=== PATIENT | female | born 1995 | race Caucasian/White ===

== ENCOUNTER 2021-11-01 08:05 | Inpatient (IN) | payer OTHER ==
[~2021-11-01 08:05] MED LIST: Bupivacaine 0.25% HCL 30 ML VIAL ONE
[2021-11-01] MEDS ORDERED: HYDROcodone/Acetaminophen 5/325 mg Tablet PO PRN (09:12)
[2021-11-01] MEDS ORDERED: Promethazine HCl 25 MG/ML VIAL IM PRN ×2 (09:12→11:31)
[2021-11-01] MEDS ORDERED: Ondansetron PF 4 MG/2 ML Vial IVP PRN ×2 (09:12→11:31)
[2021-11-01] MEDS ORDERED: Carboprost 250 MCG/ML AMP IM PRN (09:12)
[2021-11-01] MEDS ORDERED: Lidocaine 1% (PF) 30 ML VIAL SC PRN (09:12)
[2021-11-01] MEDS ORDERED: Butorphanol Tartrate 1 MG/ML VIAL SLOW IVP PRN (09:12)
[2021-11-01] MEDS ORDERED: Misoprostol 200 MCG TAB PR PRN (09:12)
[2021-11-01] MEDS ORDERED: Ibuprofen 800 MG TAB PO PRN (09:12)
[2021-11-01] MEDS ORDERED: Methylergonovine 0.2 MG/ML VIAL IM PRN (09:12)
[2021-11-01] MEDS ORDERED: hydrALAZINE 20 MG/ML VIAL SLOW IVP PRN (09:12)
[2021-11-01] MEDS ORDERED: NS w/ Oxytocin 30 units 500 ML IV SCH ×2 (09:15)
[2021-11-01] MEDS: Lactated Ringer's 1,000 ML IV SCH ×2 (09:20→13:39)
[2021-11-01 09:22] LABS: Fetal Membranes Rupture RUPTURE DETECTED (No Rupture)
[2021-11-01 11:00] LABS: Hemoglobin 13.3 g/dL (12.0-15.5); Mean Corpuscular HGB CONC 34.8 g/dL (32.0-36.0); Mean Corpuscular Hemoglobin 30.7 pg (27.0-33.0); Mean Corpuscular Volume 88.2 fl (81.6-98.3); Mean Platelet Volume 11.4 fl (7.4-10.4); Platelet Count 126 10x3/uL (150-450); RBC Distribution Width 13.3 % (11.5-14.5); Red Blood Cell (RBC) Count 4.33 10x6/uL (3.90-5.03); White Blood Cell (WBC) Count 13.1 10x3/uL (3.5-10.5)
[2021-11-01] MEDS ORDERED: Fentanyl 2 mcg/Bup 0.1% Cadd 100 ML ONE (11:31)
[2021-11-01] MEDS ORDERED: ePHEDrine Sulfate 50 MG/10 ML VIAL SLOW IVP PRN (11:31)
[2021-11-01] MEDS ORDERED: Acetaminophen 325 MG TAB PO PRN (11:31)
[2021-11-01] MEDS ORDERED: Lactated Ringer's 500 ML IV PRN (11:31)
[2021-11-01] MEDS ORDERED: Naloxone HCl 0.4 mg/ml Vial IVP PRN ×2 (11:31)
[2021-11-01] MEDS ORDERED: diphenhydrAMINE 50 MG/ML VIAL IVP PRN (11:31)
[2021-11-01] MEDS ORDERED: Moisturizing Cream (Eucerin) 113 GM JAR TOP PRN (11:31)
[2021-11-01 11:32] LABS: Hep B Surf Ag Non-Reactive S/CO (NonReactive); Syphilis Antibody Nonreactive (Nonreactive); Syphilis Antibody Index 0.04 S/CO (<1.00 Non-Reactive)
[2021-11-01 11:36] LABS: HBSAg Index 0.14 S/CO (0-0.99)
[2021-11-01] MEDS ORDERED: Communication Order-Pharmacy FS SCH (11:45)
[2021-11-01] MEDS ORDERED: Fentanyl 2 mcg/Bupivacaine 0.1% Cassette 100 ML EPIDURAL SCH (11:45)
[2021-11-01 13:27] LABS: SARS-CoV-2 NAA Rapid Test Not Detected (NotDetected)
[2021-11-02] MEDS ORDERED: hydrALAZINE 20 MG/ML VIAL SLOW IVP PRN (02:04)
[2021-11-02] MEDS ORDERED: Bisacodyl 10 MG SUPP PR PRN (02:04)
[2021-11-02] MEDS ORDERED: Benzocaine-Menthol 82.5 ML CAN TOP PRN (02:04)
[2021-11-02] MEDS ORDERED: Boostrix 0.5 ML (Tdap) VIAL IM ONE (02:04)
[2021-11-02] MEDS ORDERED: Lanolin Ointment 7 GM TUBE TOP PRN (02:04)
[2021-11-02] MEDS ORDERED: Preparation H Ointment 28 GM TUBE PR PRN (02:04)
[2021-11-02] MEDS ORDERED: Milk Of Magnesia 30 ML UDCUP PO PRN (02:04)
[2021-11-02 05:57] VITALS: BMI 38.4
[2021-11-02] MEDS: Lactated Ringer's 1,000 ML IV SCH (07:39)
[2021-11-02] MEDS: Ibuprofen 800 MG TAB PO SCH ×3 (07:40→21:45)
[2021-11-02] MEDS: Ferrous Sulfate 325 MG TAB PO SCH ×2 (07:41→15:22)
[2021-11-02] MEDS ORDERED: traMADol HCl 50 MG TAB PO PRN ×2 (08:08)
[2021-11-02] MEDS: Docusate 100 MG CAP PO SCH ×2 (08:53→21:45)
[2021-11-02] MEDS: Prenatal Vitamin 1 TAB PO SCH (08:53)
[2021-11-03] MEDS: Ibuprofen 800 MG TAB PO SCH (05:26)
[2021-11-03] MEDS: Ferrous Sulfate 325 MG TAB PO SCH (07:52)
[2021-11-03 07:53] VITALS: BP 108/65; TEMP 97.7
[2021-11-03] MEDS: Docusate 100 MG CAP PO SCH (08:19)
[2021-11-03] MEDS: Prenatal Vitamin 1 TAB PO SCH (08:19)
== END 2021-11-03 13:05 | disposition home or self-care (01) | DRG 807 ==
LOC: CSHLD/OP 08:05 → CSHLD 09:59 → CSHPP 11-02 07:45
PROVIDERS: ADMIT Obstetrics & Gynecology; ATTEND Obstetrics & Gynecology
PROC: 0U7C7ZZ Dilation of Cervix, Via Natural or Artificial Opening (ICD-10-PCS; 2021-11-01)
PROC: 10E0XZZ Delivery of Products of Conception, External Approach (ICD-10-PCS; principal; 2021-11-02)
PROC: 0KQM0ZZ Repair Perineum Muscle, Open Approach (ICD-10-PCS; 2021-11-02)
DX: O42.02 Full-term premature rupture of membranes, onset of labor within 24 hours of rupture (principal); Z37.0 Single live birth; Z20.822 Contact with and (suspected) exposure to COVID-19; O34.211 Maternal care for low transverse scar from previous cesarean delivery; Z88.0 Allergy status to penicillin; Z3A.39 39 weeks gestation of pregnancy; O70.1 Second degree perineal laceration during delivery
CPT/HCPCS: 36415; 51702; 84112; 85027; 86780; 86850; 86900; 86901; 87340; 99285; J2405; J7120; S0020; U0002